=== PATIENT | male | born 1990 | race Caucasian/White ===

== ENCOUNTER 2021-05-04 08:36 | Emergency (ER) | payer OTHER ==
[~2021-05-04 08:36] MED LIST: CYCL10TA9 PO; NAPR-915 PO
[2021-05-04] MEDS ORDERED: LIDOCAINE 1% INJ 20 ML 20 ML VIAL INJ ONE (09:00)
[2021-05-04] MEDS ORDERED: TRIM/SULFAMETH 160/800 (SEPTRA DS) TAB PO ONE (10:30)
--- NOTE | 2021-05-04 10:30 | ED Upper Extremity ---
General Chief Complaint: Upper Extremity Stated Complaint: R MIDDLE FINGER FX Nursing Triage Note: PT AMB TO [facility] 6 AFTER BEING SENT BY [facility] FOR FURTHER EVALUATION OF RIGHT MIDDLE FINGER INJURY. PT DROPPED DUMBBELL ON FINGER AT GYM THIS MORNING. DENIES ANY OTHER INJURY. Allergies and Home Medications Allergies Coded Allergies: amoxicillin (Verified Allergy, Unknown, 09/15/15) Patient Home Medication List Cyclobenzaprine HCl (Cyclobenzaprine HCl) 10 Mg Tablet, 10 MG PO Q8H Prescribed by: WILD MCKEON on 09/15/15 0559 Hydrocodone/Acetaminophen (Hydrocodone-Acetamin 5-325 mg) 1 Each Tablet, 1 TAB PO Q4H PRN for PAIN-MODERATE (5-7) Prescribed by: EMILIANA VEGA on 05/04/21 1032 Naproxen (Naproxen) 500 Mg Tablet, 500 MG PO BID Prescribed by: WILD MCKEON on 09/15/15 0559 Sulfamethoxazole/Trimethoprim (Bactrim Ds Tablet) 1 Each Tablet, 1 EACH PO BID Prescribed by: EMILIANA VEGA on 05/04/21 1031 Past Bquwiqg-Ramorl-Eydufi Hx Patient Social History Tobacco Use?: No Use of E-Cig and/or Vaping dev: No Substance use?: No Alcohol Use?: Yes Alcohol Frequency: Once in a while Pt feels they are or have been: No Past Medical History Reproductive Disorders: No Sexually Transmitted Disease: No Physical Exam Vital Signs Vital Signs - First Documented 05/04/21 08:41 Temp 35.8 Pulse 66 Resp 16 B/P (MAP) 133/83 (100) Pulse Ox 98 O2 Delivery Room Air Capillary Refill : Less Than 3 Seconds Height, Weight, BMI Height: '" Weight: lbs. oz. kg; BMI Method: Progress/Results/Core Measures Results/Orders My Orders Orders - EMILIANA BROWN MD Lidocaine 1% Inj 20 Ml (Xylocaine 1% Inj (05/04/21 09:00) Outside Films For Comparison (05/04/21 ) Sulfamethoxazole/Trimet Ds Tab (Bactrim (05/04/21 10:30) Dipht,Pertuss(Acell),Tet Adult (Boostrix (05/04/21 10:45) Medications Given in ED Current Medications Medications Dose Ordered Sig/Paulo Route Start Time Stop Time Status Last Admin Dose Admin Lidocaine HCl 20 ml ONCE ONCE INJ 05/04/21 09:00 05/04/21 09:01 DC 05/04/21 09:39 20 ML Vital Signs/I&O 05/04/21 08:41 Temp 35.8 Pulse 66 Resp 16 B/P (MAP) 133/83 (100) Pulse Ox 98 O2 Delivery Room Air Blood Pressure Mean: 100 Departure Impression Primary Impression: Crush injury to finger Qualified Codes: S67.10XA - Crushing injury of unspecified finger(s), initial encounter Additional Impressions: Finger fracture, right Qualified Codes: S62.632B - Displaced fracture of distal phalanx of right middle finger, initial encounter for open fracture Laceration of finger Qualified Codes: S61.312A - Laceration without foreign body of right middle finger with damage to nail, initial encounter Disposition: HOME, SELF-CARE Condition: Improved Departure-Patient Inst. Decision time for Depature: 10:26 Referrals: [facility] [place] ([place]/Family) Primary Care Physician Patient Instructions: Finger Fracture, Laceration Repair With Stitches (DC) Add. Discharge Instructions: Keep the wound clean and dry except for normal showering and handwashing. Do not submerge for at least 10 days and preferably until the stitches fall out or slough off. Monitor for signs of infection such as increasing redness, increasing swelling, increasing pain, puslike drainage, or fever. Return to care promptly if you notice the symptoms. Use the splint provided to protect your finger whenever active. Cover when in dirty environments or when sleeping. Complete your antibiotics as prescribed. Avoid using ibuprofen or other NSAID medications such as naproxen during the first couple of weeks of healing. These medications can delay bone healing. For minor pain you may use Tylenol (acetaminophen) up to 1000 mg every 6 hours. For more severe pain use hydrocodone as prescribed. Be sure to use the splint whenever active for the next 6 weeks. You should have no strenuous activity with the right hand during the 6-week healing time. Your fingernail is loose from the nail bed. It will eventually slough off and a new fingernail should grow in underneath. The new fingernail will likely have some disfigurement to it. Call with questions or concerns. Return to the ER with any other worsening of condition or concerns. You may return to the ER for a wound check at no charge at any time. All discharge instructions reviewed with patient and/or family. Voiced understanding. Scripts Hydrocodone/Acetaminophen (Hydrocodone-Acetamin 5-325 mg) 1 Each Tablet 1 TAB PO Q4H PRN for PAIN-MODERATE (5-7), #20 TAB Prov: EMILIANA BROWN MD 05/04/21 Sulfamethoxazole/Trimethoprim (Bactrim Ds Tablet) 1 Each Tablet 1 EACH PO BID, #14 TAB Prov: EMILIANA BROWN MD 05/04/21 Work/School Note: Work Release Form Date Seen in the Emergency Department: May 04, 2021 Return to Work: May 05, 2021 Other Restrictions Listed Below: Light duty with right hand and must wear splint x6 wks unless released EMILIANA BROWN MD May 04, 2021 10:30
[2021-05-04] MEDS ORDERED: SULF1TAB38 PO (10:31)
[2021-05-04] MEDS ORDERED: ACHD5005 PO (10:31)
[2021-05-04] MEDS ORDERED: TETANUS,DIPTH,PERTUSS P/F (BOOSTRIX) 0.5 ML VIAL IM ONE (10:45)
[2021-05-04 11:02] VITALS: BP 133/83
== END 2021-05-04 11:02 | disposition home or self-care (01) ==
LOC: EDUNIT# 08:36 → ER 08:39
DX: S67.192A Crushing injury of right middle finger, initial encounter (principal); S62.602A Fracture of unspecified phalanx of right middle finger, initial encounter for closed fracture; Z23 Encounter for immunization; X50.0XXA Overexertion from strenuous movement or load, initial encounter; Y93.B3 Activity, free weights
CPT/HCPCS: 12011; 29130; 90715

== ENCOUNTER 2021-05-25 09:43 | Emergency (ER) | payer OTHER ==
[~2021-05-25] VITALS: Ht 185 cm; Wt 97.5 kg
[~2021-05-25 09:43] MED LIST changes: +ACHD5005 PO; +SULF1TAB38 PO
--- NOTE | 2021-05-25 10:06 | ED Integumentary General ---
General Chief Complaint: Skin/Wound Problems Stated Complaint: WOUND CHECK Source: patient Exam Limitations: no limitations History of Present Illness Date Seen by Provider: May 25, 2021 Time Seen by Provider: 09:56 Initial Comments 31-year-old male coming in to check the wound on his right finger. Smash it and had a laceration that was repaired here. He is concerned because the stitches have not dissolved yet and wanted to be checked out. Denies any pain, redness, swelling, drainage, or any other concerns. Pain is well controlled. Allergies and Home Medications Allergies Coded Allergies: amoxicillin (Verified Allergy, Unknown, 09/15/15) Patient Home Medication List Home Medication List Reviewed: Yes Cyclobenzaprine HCl (Cyclobenzaprine HCl) 10 Mg Tablet, 10 MG PO Q8H Prescribed by: WILD MCKEON on 09/15/15 0559 Hydrocodone/Acetaminophen (Hydrocodone-Acetamin 5-325 mg) 1 Each Tablet, 1 TAB PO Q4H PRN for PAIN-MODERATE (5-7) Prescribed by: EMILIANA VEGA on 05/04/21 1032 Naproxen (Naproxen) 500 Mg Tablet, 500 MG PO BID Prescribed by: WILD MCKEON on 09/15/15 0559 Sulfamethoxazole/Trimethoprim (Bactrim Ds Tablet) 1 Each Tablet, 1 EACH PO BID Prescribed by: EMILIANA VEGA on 05/04/21 1031 Review of Systems Review of Systems Constitutional: no symptoms reported; No fever Skin: No rash All Other Systems Reviewed Negative Unless Noted: Yes Past Kubldjh-Vxzwcu-Ssgbes Hx Patient Social History Tobacco Use?: No Past Medical History Surgeries: Yes ([place] teeth) Respiratory: No Cardiac: No Neurological: No Reproductive Disorders: No Sexually Transmitted Disease: No Genitourinary: No Gastrointestinal: No Musculoskeletal: No Endocrine: No HEENT: No Cancer: No Psychosocial: No Physical Exam Vital Signs Capillary Refill : General Appearance: WD/WN, no apparent distress HEENT: normal ENT inspection Neck: full range of motion Cardiovascular: regular rate, rhythm Respiratory: chest non-tender, no respiratory distress, no accessory muscle use Gastrointestinal: No distended Back: normal inspection Extremities: normal range of motion, other (Laceration healed with stitches in place) Neurologic/Psychiatric: alert Skin: normal color, warm/dry; No rash Procedures/Interventions Suture Size: 4-0 Progress/Results/Core Measures Progress Progress Note : Progress Note 31-year-old male with above history coming in for wound check. The wound is not infected and has healed. I removed the stitches. I believe he is stable for discharge. Sent home with strict return precautions. Departure Impression Primary Impression: Visit for suture removal Disposition: HOME, SELF-CARE Condition: Improved Departure-Patient Inst. Decision time for Depature: 10:05 Referrals: [facility] (PCP/Family) Primary Care Physician Patient Instructions: Stitches Removal Add. Discharge Instructions: If you have any redness, swelling, drainage from the wound then please see your primary doctor or come back. All discharge instructions reviewed with patient and/or family. Voiced understanding. RONNY JACOBSON MD May 25, 2021 10:06
[2021-05-25 10:20] VITALS: BP 173/71
== END 2021-05-25 10:22 | disposition home or self-care (01) ==
LOC: EDUNIT# 09:43 → ER 09:44
DX: Z48.02 Encounter for removal of sutures (principal)